=== PATIENT | female | born 1975 | race Caucasian/White ===

== ENCOUNTER → 2017-09-13 | Outpatient (CLI) | payer BC | END | disposition home or self-care (01) | LOC: CFH 14:53 | PROVIDERS: ATTEND Family Medicine | DX: N63.32 Unspecified lump in axillary tail of the left breast (principal) | CPT/HCPCS: 76641; G0204 ==

== ENCOUNTER 2018-04-30 09:13 | Emergency (ER) | payer BC ==
[~2018-04-30] VITALS: Ht 162.6 cm; Wt 101.5 kg
[2018-04-30 09:16] VITALS: BP 150/95
[2018-04-30 09:50] LABS: BASOPHILS # (AUTO) 0.04 x10^3/uL (0-0.1); BASOPHILS % (AUTO) 0 % (0-1); EOSINOPHILS % (AUTO) 1 % (1-7); LYMPHOCYTES # (AUTO) 1.73 x10^3/uL (1-3.4); LYMPHOCYTES % (AUTO) 13 % (22-44); MD NO; MEAN CORPUSCULAR HEMOGLOBIN 32.6 pg (27.0-34.8); MEAN CORPUSCULAR HGB CONC 34.9 g/dL (32.4-35.8); MEAN CORPUSCULAR VOLUME 93.3 fL (80-100); MEAN PLATELET VOLUME 7.6 fL (7.4-10.4); MONOCYTES # (AUTO) 1.01 x10^3/uL (0.2-0.8); MONOCYTES % (AUTO) 8 % (2-9); NEUTROPHILS # (AUTO) 10.53 x10^3/uL (1.8-6.8); NEUTROPHILS % (AUTO) 79 % (42-75); PLATELET COUNT 193 x10^3/uL (130-400); RED BLOOD COUNT 5.37 x10^6/uL (3.82-5.3); RED CELL DISTRIBUTION WIDTH 14.4 % (9.6-15.2)
[2018-04-30 10:01] LABS: ANION GAP 8 mmol/L (5-15); CALCIUM 9.2 mg/dL (8.5-10.1); CHLORIDE 100 mmol/L (98-107); CREATININE 0.94 mg/dL (0.55-1.02)
== END 2018-04-30 11:29 | disposition home or self-care (01) ==
LOC: ED 11:23
DX: L03.115 Cellulitis of right lower limb (principal); E10.65 Type 1 diabetes mellitus with hyperglycemia; E10.621 Type 1 diabetes mellitus with foot ulcer
CPT/HCPCS: 36415; 80048; 85025; 99285